=== PATIENT | female | born 2000 | race Two or more races ===

== ENCOUNTER 2021-05-15 18:09 | Emergency (ER) | payer OTHER ==
[~2021-05-15] VITALS: Ht 162.6 cm; Wt 54.4 kg
== END 2021-05-15 21:28 | disposition home or self-care (01) ==
LOC: EMR PED 18:09 → ER 18:09 → EMR PED 18:25
DX: M54.9 Dorsalgia, unspecified (principal); Z03.818 Encounter for observation for suspected exposure to other biological agents ruled out; R10.13 Epigastric pain